=== PATIENT | female | born 1980 | race Caucasian/White ===

== ENCOUNTER → 2019-06-25 | Day surgery (SDC) | payer BC ==
--- OUTSIDE RECORDS SUMMARY | 2019-06-25 09:53 | XMS REPORT ---
:1980 Author Organization [facility] t Address [address] [place] [address] [address]. [address] [place] [address] Care Team Providers Name Role Phone YULIET IGLESIAS M.D. Unavailable Unavailable HOLTER, NON-INVASIVE Unavailable Unavailable GABE HIGGINS M.D. Unavailable Unavailable JUAN CARLOS CHAMORRO M.D. Unavailable Unavailable MEG GANDARA M.D. Unavailable Unavailable ARIN CASTRO M.D. Unavailable Unavailable Problems Condition Condition Condition Status Onset Resolution Last Treatin g Comments Name Details Category Date Date Treatment Clinician Date History of History of Problem Resolve Asthma Asthma d History of History of Problem Resolve Thyroid Thyroid d disease disease History of History of Problem Resolve Vision Vision d problems problems Anxiety Anxiety Problem Active Hypothyroid Hypothyroid Problem Active ism due to ism due to Mariah's Mariah's thyroiditis thyroiditis IBS IBS Problem Active (irritable (irritable bowel bowel syndrome) syndrome) Raised Raised Problem Active antibody antibody titer titer Tachycardia Tachycardia Problem Active Arrhythmia Arrhythmia Problem Active Left foot Left foot Problem Active pain pain Allergies, Adverse Reactions, Alerts Allergy Allergy Status Severity Reaction(s) Onset Inactive Treating C omments Name Type Date Date Clinician Pertussis drug Active Vaccine allergy Singulair drug Active allergy Rhinocort drug Active allergy Medications Ordered Filled Start Stop Current Ordering Indication Dosage Frequency Signature Comments Components Medication Medication Date Date Medication? Clinician (SIG) Name Name Meloxicam Meloxicam 2019-0 Yes YULIET TAKE 1 15 MG Oral 15 MG Oral 2-01 GAUVAIN TABLET Tablet Tablet 00:00: M.D. DAILY 00 NEEDED. Levothyroxi Levothyroxi Yes TAKE 1 ne Sodium ne Sodium TABLET BY 50 MCG Oral 50 MCG Oral MOUTH ON CE Tablet Tablet DAILY. Ventolin 90 Ventolin 90 Yes 3 Q0.25D FOR RES CUE MCG/ACT MCG/ACT WHEN OTHER AERS AERS MEDS NOT WORKING,US E 2-3 PUFFS 3-4 TIMES DAILY MAX EVERY 4 HOURS. Qvar 40 Qvar 40 Yes Q0.5D INHALE 1 MCG/ACT MCG/ACT PUFF TWICE AERS AERS DAILY. Vital Signs Vital Name Observation Time Observation Value Comments BP Systolic 2017-01-05 13:12:00 114 mm[Hg] Location: [facility]; Position: Sitting BP Diastolic 2017-01-05 13:12:00 76 mm[Hg] Location: [facility]; Position: Sitting Height 2017-01-05 13:12:00 66 [in_us] Weight 2017-01-05 13:12:00 139.3125 [lb_av] Heart Rate 2017-01-05 13:12:00 89 /min Location: L Radial; Procedures and Interventions Procedure Date / Time Performed Performing Clinici an [U] XRAY FOOT MIN 3 VWS LEFT [id number] 2018-03-24 00:00:00 MR Foot wo contrast [id number] 2018-03-24 00:00:00 [N] Holter [id number] 2017-04-01 00:00:00 [QH] PROTEIN, TOTAL W/CREAT, RANDOM URINE 2017-01-05 00:00:0 0 [QLH] COMPLEMENT COMPONENT C3C 2017-01-05 00:00:00 [QLH] COMPLEMENT COMPONENT C4C 2017-01-05 00:00:00 [QLH] DNA (DS) ANTIBODY 2017-01-05 00:00:00 [QLH] URINALYSIS, COMPLETE 2017-01-05 00:00:00 [Q] SM AND SM/SYSTEM ENGINEER ANTIBODIES 2017-01-05 00:00:00 [QLH] SJOGRENS ANTIBODIES (SS-A,SS-B) 2017-01-05 00:00:00 History of Tooth extraction Encounters Start End Encounter Admission Attending Care Care Encounter Date/Time Date/Time Type Type Clinicians Facility Department ID 2018-03-24 2018-03-24 Appointment [facility] 4 [id number] 13:15:00 13:15:00 ; YULIET IGLESIAS at [place] [facility], M.D. M.D. 2017-04-01 2017-04-01 Appointment [facility] Non-Invasive 3 [id number] 14:00:00 14:00:00 ; HOLTER, NON-INVASIV NON-INVASIV E E 2017-03-30 2017-03-30 Appointment [facility] [id number] 15:00:00 15:00:00 ; Disha BERNAL ANNE, M.D. 2017-03-10 2017-03-10 Appointment [facility] [id number] 14:45:00 14:45:00 ; Disha BERNAL ANNE, M.D. 2017-01-05 2017-01-05 [facility]ment [facility] [id number] 13:00:00 13:00:00 ; JUAN CARLOS CHAMORRO JAMMIE, M.D. M.D. 2016-12-22 2016-12-22 [facility] [id number] 11:15:00 11:15:00 ; MEG GANDARA LAVANYA, M.D. M.D. 2016-10-04 2016-10-04 [facility] [id number] 09:00:00 09:00:00 ; ARIN CASTRO CARLOS, M.D. M.D. 2016-06-16 2016-06-16 App[facility] [id number] 10:45:00 10:45:00 ; MEG GANDARA LAVANYA, M.D. M.D. 2016-06-16 2016-06-16 App[facility]ment [facility] [id number] 09:40:00 09:40:00 ; MEG GANDARA LAVANYA, M.D. M.D. Results Test Description Test Time Test Comments Text Results Atomic Results Result Comments MR Foot wo contrast 2018-04-05 16:35:00 MRI of the LEF T footINDICATION: Left 94340 foot pain.COMPARISON: No lavinia or studies available for comparison.CRYSTAL HNIQUE: Multiplanar multisequence no ncontrast MRI left foot.FINDINGS:Bones : No evidence of acute fracture. No significant marrow edema.Sof t tissues: Lisfranc ligament is intact. Plantar plates are intact. Nodefinit neena Michael's neuroma.There is a small ank le and subtalar joint effusion. Sma ll talonavicular jointeffusion. There is mild edema around the talona vicular joint capsular ligaments,com patible with mild ligament sprain.Muscles : No muscular edema, fluid collec tion or atrophy.Tendons: No focal te ndon signal abnormality, or evidence for tenosynovitis.IMPRESSION:1. No evidence of acute fracture.2. Mild t alonavicular capsule sprain.3. Scattered small joint effusions.SL: [id number]-M--Read by: Elder Khan MDDictated D ate/time: 04/06/18 08:55Electronically Signed by: Elder Khan MD 04/06/1908:01FINAL REPORT [U] XRAY FOOT MIN 3 2018-03-24 13:55:00 Images acquire d, not reported on this VWS LEFT [id number] accession number. [QLH] URINALYSIS, COMPLETE 2017-03-12 09:48:00 Test Item Value Reference Range Comments COLOR; Normal (test code = 5778-6) YELLOW YELLOW APPEARANCE (test code = APPEARANCE) CLEAR CLEAR SPECIFIC GRAVITY; Below Low Threshold (test code = 2965-2) 1.000 1.001-1.035 PH; Normal (test code = 2756-5) 7.5 5.0-8.0 GLUCOSE; Normal (test code = 1547-9) NEGATIVE NEGATIVE BILIRUBIN; Normal (test code = 92732-3) NEGATIVE NEGATIVE KETONES; Normal (test code = 65388-3) NEGATIVE NEGATIVE OCCULT BLOOD; Normal (test code = 16951-7) NEGATIVE NEGAT NEENA PROTEIN; Normal (test code = 84791-6) NEGATIVE NEGATIVE NITRITE; Normal (test code = 66232-1) NEGATIVE NEGATIVE LEUKOCYTE ESTERASE (test code = LEUKOCYTE ESTERASE) TRACE NEGATIVE WBC; Normal (test code = 6690-2) NONE SEEN < OR = 5 RBC; Normal (test code = 789-8) 0-2 < OR = 2 SQUAMOUS EPITHELIAL CELLS; Normal (test code = 94855-6) NONE SEE N < OR = 5 BACTERIA; Normal (test code = 630-4) NONE SEEN NONE SEEN HYALINE CAST; Normal (test code = 75388-6) NONE SEEN NONE SEEN [QLH] DNA (DS) [id number] 09:48:00 Test Item Value Reference Range Comments DNA (DS) ANTIBODY (test code <1 IU/ mL Interpretation = DNA (DS) ANTIBODY) < or = 4 Negative 5-9 Inde terminate > or = 10 Positive [Q] SM AND SM/SYSTEM ENGINEER [id number] 09:48:00 Test Item Value Reference Range Comments SM ANTIBODY (test code = SM ANTIBODY) <1.0 NEG <1.0 NEG SM/SYSTEM ENGINEER ANTIBODY (test code = SM/SYSTEM ENGINEER ANTIBODY) <1.0 NEG <1 .0 NEG [QLH] SJOGRENS ANTIBODIES (SS-A,SS-B)2017-03-12 09:48:00 Test Item Value Reference Range Comments SJOGREN''S ANTIBODY (SS-A) (test code = SJOGREN''S <1.0 NEG <1.0 NEG ANTIBODY (SS-A)) SJOGREN''S ANTIBODY (SS-B) (test code = SJOGREN''S <1.0 NEG <1.0 NEG ANTIBODY (SS-B)) [QLH] COMPLEMENT COMPONENT [id number] 09:48:00 Test Item Value Reference Range Comments COMPLEMENT COMPONENT C3C (test code = COMPLEMENT 149 mg/dl 90-180 COMPONENT C3C) [QLH] COMPLEMENT COMPONENT [id number] 09:48:00 Test Item Value Reference Range Comments COMPLEMENT COMPONENT C4C (test code = COMPLEMENT 34 mg/dl 16-47 COMPONENT C4C) [QH] PROTEIN, TOTAL W/CREAT, RANDOM [id number] 09:48:00 Test Item Value Reference Range Comments CREATININE, RANDOM URINE 21 mg/dl 20-320 (test code = CREATININE, RANDOM URINE) PROTEIN/CREATININE RATIO NOTE 21-161 THE PRO TEIN VALUE IS LESS THAN 4 (test code = MG/DLTHEREFORE W E ARE UNABLE TO PROTEIN/CREATININE CALCULATEEXCR ETION AND/OR CREATININE RATIO) RATIO. PROTEIN, TOTAL, RANDOM <4 5-24 UR (test code = PROTEIN, TOTAL, RANDOM UR)
--- NOTE | 2019-06-25 12:19 | RAD REPORT ---
EXAM DESCRIPTION: US - Guided FNA Non Breast - 06/25/2019 9:24 am CLINICAL HISTORY: Thyroid nodule ICD E03.9 COMPARISON: April 2019 ultrasound TECHNIQUE: Risks, benefits and alternatives of procedure explained to the patient and informed conse nt obtained. Skin and subcutaneous tissues anesthetized with lidocaine. Under sonographic guidance, five 25 gauge needle passes were obtained into the dominant nodule within the right lobe of the thyroid gland. Specimens given to pathology. Patient experienced no immediate complication IMPRESSION: Fine-needle aspiration of a dominant nodule within left lobe of thyroid gland
== END | disposition home or self-care (01) ==
LOC: FNA 08:39
PROVIDERS: ATTEND Specialist
PROC: 0G9G3ZX Drainage of Left Thyroid Gland Lobe, Percutaneous Approach, Diagnostic (ICD-10-PCS; principal; 2019-06-25)
PROC: BG44ZZZ Ultrasonography of Thyroid Gland (ICD-10-PCS; 2019-06-25)
DX: C73 Malignant neoplasm of thyroid gland (principal); E03.9 Hypothyroidism, unspecified
CPT/HCPCS: 88162

== ENCOUNTER 2021-03-13 00:50 | Emergency (ER) | payer BC, SELFPAY ==
--- OUTSIDE RECORDS SUMMARY | 2021-03-13 00:56 | XMS REPORT | Clinical Summary ---
:1980 Author Organization [facility] MD [facility] Address [address] [place] [address] Care Team Providers Name Role Phone Anali Bowers MD Primary Care Provider Reena Simon MD Unavailable Jessica Mi MD Unavailable Johanny, PhD Unavailable Allergies Active Allergy Reactions Severity Noted Date Comments Budesonide 08/09/2016 Montelukast 08/09/2016 Onion 01/06/2021 Pertussis Vaccines Anaphylaxis High 08/04/2016 Medications Medication Sig Dispensed Refills Start End Date Status Date lidocaine-prilocaine Apply to area 30 g 2 Active (EMLA) 2.5-2.5% 30 to 45 0 creamIndications: minutes prior Hypersensitivity to as directed finding (topical anesthetic). beclomethasone Inhale 1 puff 0 A ctive (QVAR) 80 mcg/puff by mouth inhaler daily. diazePAM (Valium) 2 Take 1 tablet 1 tablet 0 Active mg (2 mg) by 1 tabletIndications: mouth once as Papillary thyroid needed for carcinoma anxiety for up to 1 dose. econazole Apply to feet 85 g 3 Active (SPECTAZOLE) 1% twice a day 1 creamIndications: until scaling Tinea pedis resolves, then for 1 additional week. ketoconazole Apply to scalp 120 mL 6 Ac tive (NIZORAL) 2% 2-3 times per 1 shampooIndications: week for Seborrhea capitis scaling. Leave for 10 minutes in the shower then rinse. Calcium 600 with Chew 2 tablets 0 Active Vitamin D3 1,500 mg at bedtime. - 400 units (600 mg elemental calcium per tablet) per chew tablet Synthroid 100 mcg Take 1 tablet 90 tablet 4 02/11/20 Active tabletIndications: (100 mcg) by 1 22 Papillary thyroid mouth daily. carcinoma, Postoperative hypothyroidism diltiazem (CARDIZEM) Take 120 mg by 0 12/22 Discontinued 120 mg tablet mouth daily. 0 21 (No t Applicable) calcium carbonate Take 1 tablet 0 01/07/20 Discontinued (OS-YUAN) 500 mg (500 mg) by 0 21 (N ot Applicable) (1,250 mg calcium mouth twice carbonate per daily. tablet) tabletIndications: Papillary thyroid carcinoma, Postoperative hypothyroidism, Long-term drug therapy, Encounter for screening for other suspected endocrine disorder, Hypocalcemia diazePAM (Valium) 2 Take 1 tablet 1 tablet 0 Discontinued mg (2 mg) by 0 21 (Reorder) tabletIndications: mouth once as Papillary thyroid needed for carcinoma anxiety for up to 1 dose. Synthroid 125 mcg Take 1 tablet 90 tablet 3 03/14/19 Discontinued tabletIndications: (125 mcg) by 0 21 (Dose Postoperative mouth daily. adj ustment) hypothyroidism levothyroxine Take by mouth. 0 03/14/19 D iscontinued (SYNTHROID, Half pill 21 (Dose LEVOTHROID) 137 mcg twice a week, adjustment) tablet other days taking full cholecalciferol, Take 50,000 0 01/07/20 D iscontinued vitamin D3, (VITAMIN Units by 21 (Not Applicable) D3) 50,000 units tab mouth. Every tablet 2 weeks Synthroid 112 mcg Take 1 tablet 30 tablet 13 11/06/19 Discontinued tabletIndications: (112 mcg) by 1 21 (Reorder) Papillary thyroid mouth daily. carcinoma, Postoperative hypothyroidism diazePAM (Valium) 2 Take 1 tablet 1 tablet 0 Discontinued mg (2 mg) by 1 21 (Reorder) tabletIndications: mouth once as Papillary thyroid needed for carcinoma anxiety for up to 1 dose. Synthroid 112 mcg Take 1 tablet 90 tablet 4 01/07/20 Discontinued tabletIndications: (112 mcg) by 1 21 (Dose Papillary thyroid mouth daily. adjustment) carcinoma, Postoperative hypothyroidism Active Problems Patient Care Coordination Note Formatting of this note might be differe nt from the original. Hypersensitivity and extreme phobia of n eedles, please use IV team for starting IVs. 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 08/16/2019 Postoperative hypothyroidism 08/14/2019 Exercise-induced asthma 08/10/2019 Postural orthostatic tachycardia syndrome 08/10/2019 High antibody titer 07/18/2019 Overview: +TgAb Fear of injections and transfusions 07/18/2019 Mixed anxiety and depressive disorder 07/18/2019 Papillary thyroid carcinoma 07/13/2019 Cancer Staging: Pathologic stage from : Stage I (pT1a, pN1a, cM0, Age at diagnosis: < 55 years) - Signed by Jeff Beltran MD on 09/24/2019 Encounters Date Type Specialty Care Team Description 01/06/2021 Office Visit Endocrinology Devin, Papillary thyr oid carcinoma (Primary Dx); MD Jeff Secondary malig nant neoplasm of lymph nodes of neck from thyroid; High antibody t iter; Postoperative h ypothyroidism; Long-term drug therapy 01/06/2021 Consult Dermatology Fariba Jacob pedis (Pr imary Dx); MD Geraldine Skin lesion; Seborrhea capit is 01/06/2021 Ancillary Procedure Radiology Devin, Papillar y thyroid MD Jeff carcinoma 01/06/2021 Travel 01/01/2021 Telephone Pediatric Severino Barton Endocrinology R, RN 12/25/2020 Documentation Endocrinology Vanna Cole RN 12/17/2020 Refill Pediatric Divincenzo, Papillary thyro id Endocrinology Magdalene Sesay RN carcinoma 11/24/2020 Orders Only Pediatric Litzy, Papillary thyr oid carcinoma (Primary Dx); Endocrinology AYLIN Hooks Postoperative hypothyroidism; Skin lesion 11/05/2020 Refill Pediatric Divincenzo, Papillary thyro id carcinoma; Endocrinology Magdalene Sesay RN Postoperative hypothyroidism 05/30/2020 Telephone Pediatric [place], Endocrinology Magdalene Sesay RN 05/19/2020 Refill Pediatric Divincenzo, Papillary thyro id Endocrinology Magdalene Sesay RN carcinoma 05/19/2020 Refill Endocrinology Trevin, Papillary thyr oid Alinaalthea Kerrn O, carcinoma RN 04/19/2020 Immunization Infectious Diseases Bill Bowers SARS-CoV -2 MD Anali vaccination (Pr imary Dx) 04/19/2020 Travel 03/29/2020 Immunization Infectious Diseases Ricky SARS-CoV -2 MD Janelle vaccination (Pr imary Dx) 03/29/2020 Travel 03/27/2020 Office Visit Pediatric Devin, Papillary thyro id carcinoma (Primary Dx); Endocrinology MD Jeff Secondary anne gnant neoplasm of lymph nodes of neck from thyroid; High antibody t iter; Postoperative h ypothyroidism; Long-term drug therapy 03/27/2020 Ancillary Procedure Radiology Devin, Papillar y thyroid MD Jeff carcinoma 03/27/2020 Travel 03/21/2020 Orders Only Infectious Diseases Ricky SARS-CoV -Serge Luis MD vaccination 03/14/2020 Orders Only Pediatric Litzy, Papillary thyr oid carcinoma (Primary Dx); Endocrinology AYLIN Hooks Postoperative hypothyroidism 03/14/2020 Documentation Pediatric Litzy, Endocrinology AYLIN Hooks after 03/13/2020 Immunizations Name Administration Dates Next Due Pfizer SARS-CoV-2 Vaccination 10/04/2020, 04/19/2020, 2020 Pneumococcal Polysaccharide 12/19/2018 Surgical History Surgery Date Site/Laterality Comments WISDOM TOOTH EXTRACTION ID [id number] 08/13/2019 Neck/Bilateral Procedure: TOTA L OR COMPLETE THYROID ECTOMY; Surgeon: Bill Bowers MD; Location: [facility]; Service: [facility] - HE AD & NECK SURGERY ID REMOVAL NODES, NECK,CERV MOD 08/13/2019 Neck/Right Procedure: LEVEL NECK RAD DISSECTION; Fabio geon: Lázaro Nieves; Location: MAIN O R; Service: HN - HE AD & NECK SURGERY Medical History Medical History Date Comments Allergic rhinitis Sinusitis Tooth disorder Sensitivity to commo n toothpaste led to a lot of cavities . Asthma Lifetime Exercise and cold ai r induced. Must be kept warm. Irritable bowel syndrome 11+ Dairy, gluten, fatty foods, sugars Anemia 19 Heavy monthly bleede r. Controlled via iron supplement.. Anxiety Mariah's thyroiditis 2015 Papillary thyroid carcinoma 06/2019 Postural orthostatic tachycardia 2015 syndrome Abnormal vision right eye trauma as a child Secondary malignant neoplasm of lymph 08/16/2019 nodes of neck from thyroid Family History Medical History Relation Name Comments Coronary artery disease Father Bernard Prostate cancer Father Bernard Skin cancer Mother Shikha Diabetes Paternal Aunt Coronary artery disease Paternal Grandfather Skin cancer Paternal Grandmother Ata Brain cancer Paternal Uncle Reggie . Stroke Neg Hx Relation Name Status Comments Father Bernard Mother Shikha Paternal Aunt Paternal Grandfather Paternal Grandmother Ata Paternal Uncle Reggie Social History Tobacco Use Types Packs/Day Years Used Date Never Smoker 0 0 Smokeless Tobacco: Never Used Alcohol Use Standard Drinks/Week Comments Never 0 (1 standard drink = 0.6 oz pure alcoho l) Sex Assigned at Date Recorded Female 07/06/2019 11:33 AM CDT Job Start Date Occupation Industry Not on file Not on file Not on file Obstetrics History Last Filed Vital Signs Vital Sign Reading Time Taken Comments Blood Pressure 100/65 01/06/2021 2:39 PM FOOD TECHNOLOGIST Pulse 100 01/06/2021 2:39 PM FOOD TECHNOLOGIST Temperature 36.9 C (98.4 F) 01/06/2021 2:39 PM FOOD TECHNOLOGIST Respiratory Rate 16 03/27/2020 12:52 PM FOOD TECHNOLOGIST Oxygen Saturation 97% 01/06/2021 2:39 PM FOOD TECHNOLOGIST Inhaled Oxygen Concentration - - Weight 57.7 kg (127 lb 3.3 oz) 01/06/2021 3:18 PM FOOD TECHNOLOGIST Height 166.1 cm (5' 5.39") 03/27/2020 12:52 PM FOOD TECHNOLOGIST Body Mass Index 20.91 03/27/2020 12:52 PM FOOD TECHNOLOGIST Plan of Treatment Health Maintenance Due Date Last Done Comments COVID-19 Vaccination (4 - Booster 03/06/2021 10/04/2020, , for Pfizer series) 03/29/2020 Procedures Procedure Name Priority Date/Time Associated Diagnosis Comme nts US HEAD NECK SOFT Routine 01/06/2021 2:03 PM Papillary thyroi d Results for this TISSUE FOOD TECHNOLOGIST carcinoma procedure are i n the results section. HEAD NECK SOFT Routine 03/27/2020 10:17 AM Papillary thyroi d Results for this TISSUE FOOD TECHNOLOGIST carcinoma procedure are i n the results section. after 03/13/2020 Results US Head Neck Soft Tissue (01/06/2021 2:03 PM FOOD TECHNOLOGIST)Only the most recent of2 resultswithin the time period is included. Specimen Impressions [id number] - 01/06/2021 2:24 PM FOOD TECHNOLOGIST 1. No local recurrence. 2. No adenopathy. Narrative [id number] - 01/06/2021 2:24 PM FOOD TECHNOLOGIST Examination: US HEAD NECK SOFT TISSUE, 01/06/2021 2:03 PM Clinical History: PTC Indication: PTC Comparison: Neck ultrasound from Technique: Sonographic images were [place] of the neck soft tissues. Findings: Thyroidectomy and Central neck: The tota l thyroidectomy bed has no local recurrence. Right lateral compartment: No adenopathy . Left lateral compartment: No adenopathy Procedure Note Kaylan Patel MD - 01/06/2021 Examination: US HEAD NECK SOFT TISSUE, 1 03/08/2020 2:03 PM Clinical History: PTC Indication: PTC Comparison: Neck ultrasound from Technique: Sonographic images were [place] of the neck soft tissues. Findings: Thyroidectomy and Central neck: The tota l thyroidectomy bed has no local recurrence. Right lateral compartment: No adenopathy . Left lateral compartment: No adenopathy IMPRESSION: 1. No local recurrence. 2. No adenopathy. Performing Organization Address City/State/ZIP Code Phon e Number [id number] after 03/13/2020 Insurance Payer Benefit Plan / Subscriber ID Effective Dates Phone Addre ss Type Group [employer] PPO POS [id number] 2017-Present [address] [facility] PPO [facility]UE [facility] [facility] [address] [place] [address] Advance Directives Code Status Date Activated Date Inactivated Comments Full Code 08/13/2019 2:54 PM 08/14/2019 8:30 AM Care Teams [employer] Relationship Specialty Start Date End Date Bill Bowers, PCP - General Head and Neck Surgery 07/12/[address] [place] [address] [phone] Ailyn Simon MD PCP - External Follow 07/12/19 [address] [facility] [address] [place], [place] [id number] Paddy Mi MD PCP - External Primary Internal Medicine 07/17/19 [address] [facility] Provider [address] [place], [place] [id number] Vibha Orlando, PhD Psychologist Psychology 09/19/[address] [place] [address] [phone]
--- OUTSIDE RECORDS SUMMARY | 2021-03-13 00:57 | XMS REPORT | Continuity of Care Document ---
:1980 Author Organization [facility] t Address [address] [place] [address] Care Team Providers Name Role Phone [phone] Primary Care Physician Unavailable RONALDO Attending Clinician Unavailable SYSTEM, NOT IN Attending Clinician Unavailable Kobi GARRETT Attending Clinician Unavailable DEVIN Attending Clinician Unavailable PADMINI Attending Clinician Unavailable GABE COYLE Attending Clinician Unavailable Devin ANAYA Attending Clinician Tyron ANAYA Attending Clinician TYRON Attending Clinician Unavailable Oralia RN, R Attending Clinician Unavailable Kelsey AN, L Attending Clinician Unavailable Guanako AN, M Attending Clinician Unavailable Litzy VIERA Attending Clinician Ophelia Zhong RN Attending Clinician Anali Bowers MD Attending Clinician ANALI BOWERS Attending Clinician Unavailable Cristina ANAYA Attending Clinician CRISTINA Attending Clinician Unavailable ABDIRASHID Attending Clinician Unavailable IRINEO Attending Clinician Unavailable KELSIE Attending Clinician Unavailable DEMETRIUS Attending Clinician Unavailable RONALDO Attending Clinician Unavailable PEDRO PABLO Attending Clinician Unavailable NICHOL Attending Clinician Unavailable MATTHEW Attending Clinician Unavailable ANALI BOWERSitting Clinician Unavailable Payers Payer Name Policy Type Policy Number Effective Date Expiration Date S [facility] BCBS OUT OF STATE [id number] 2017 00:00:00 BCBS PPO POS OUT [id number] 2017 00:00:00 OF STATE GENERIC BCBS PPO POS EPO [id number] 2017 00:00:00 CHOICE Problems Condition Condition Condition Status Onset Resolution Last Treating Co mments Source Name Details Category Date Date Treatment Clinician Date 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 00:00: n 00 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 +TgAb Fear of Fear of Disease Active MD injections injections 5-27 An derso and and 00:00: n transfusio transfusio 00 ns ns Mixed Mixed Disease Active MD anxiety anxiety 5- Anderso and and 00:00: n depressive depressive 00 disorder disorder Papillary Papillary Disease Active MD thyroid thyroid 5 Anderso carcinoma carcinoma 00:00: n 00 History of History of Problem Resolve [facility] Asthma Asthma d [facility] [place] [facility] History of History of Problem Resolve [facility] Thyroid Thyroid d ity of disease disease [place] [facility] History of History of Problem Resolve [facility] Vision Vision d ity of problems problems [place] [facility] Anxiety Anxiety Problem Active [facility] [place] [facility] Hypothyroi Hypothyroi Problem Active U nivers dism due dism due ity of to to [place] [facility] ans thyroiditi thyroiditi s s Tachycardi Tachycardi Problem Active U nivers a a [facility] [place] [facility] Arrhythmia Arrhythmia Problem Active U nivers [facility] [place] [facility] Left foot Left foot Problem Active Uni vers pain pain [facility] [place] [facility] Allergies, Adverse Reactions, Alerts Allergy Allergy Status Severity Reaction(s) Onset Inactive Treating Comm ents Source Name Type Date Date Clinician BUDESONI [facility] Wayne MONTELUK Allergy Active [facility] Wayne BUDESONI DRUG Active MD DE INGREDI 6-19 Anderso 00:00: n 00 [place] DRUG Active 0 MD AST INGREDI 6-19 Anderso 00:00: n 00 BUDESONI DRUG Active 0 MD DE INGREDI 6-19 Anderso 00:00: n 00 [place] DRUG Active 0 MD AST INGREDI 6-19 Anderso 00:00: n 00 BUDESONI DRUG Active 0 MD DE INGREDI 6-19 Anderso 00:00: n 00 [place] DRUG Active 0 MD AST INGREDI 6-19 Anderso 00:00: n 00 BUDESONI DRUG Active 0 MD DE INGREDI 6-19 Anderso 00:00: n 00 [place] DRUG Active 0 MD AST INGREDI 6-19 Anderso 00:00: n 00 BUDESONI DRUG Active 0 MD DE INGREDI 6-19 Anderso 00:00: n 00 [place] DRUG Active 0 MD AST INGREDI 6-19 Anderso 00:00: n 00 BUDESONI DRUG Active 0 MD DE INGREDI 6-19 Anderso 00:00: n 00 [place]EL[place] DRUG Active 20170 MD AST INGREDI 6-19 Anderso 00:00: n 00 BUDESONI DRUG Active 0 MD DE INGREDI 6-19 Anderso 00:00: n 00 [place] DRUG Active 2017-0 MD AST INGREDI 6-19 Anderso 00:00: n 00 BUDESONI DRUG Active 0 MD DE INGREDI 6-19 Anderso 00:00: n 00 [place] DRUG Active 2017-0 MD AST INGREDI 6-19 Anderso 00:00: n 00 BUDESONI DRUG Active 0 MD DE INGREDI 6-19 Anderso 00:00: n 00 [place] DRUG Active 2017-0 MD AST INGREDI 6-19 Anderso 00:00: n 00 BUDESONI DRUG Active 2017-0 MD DE INGREDI 6-19 Anderso 00:00: n 00 [place] DRUG Active 2017-0 MD AST INGREDI 6-19 Anderso 00:00: n 00 BUDESONI DRUG Active 2017-0 MD DE INGREDI 6-19 Anderso 00:00: n 00 [place] DRUG Active 2017-0 MD AST INGREDI 6-19 Anderso 00:00: n 00 BUDESONI DRUG Active 2017-0 MD DE INGREDI 6-19 Anderso 00:00: n 00 [place] DRUG Active 2017-0 MD AST INGREDI 6-19 Anderso 00:00: n 00 BUDESONI DRUG Active 2017-0 MD DE INGREDI 6-19 Anderso 00:00: n 00 [place] DRUG Active 2017-0 MD AST INGREDI 6-19 Anderso 00:00: n 00 BUDESONI DRUG Active 2017-0 MD DE INGREDI 6-19 Anderso 00:00: n 00 [place] DRUG Active 2017-0 MD AST INGREDI 6-19 Anderso 00:00: n 00 BUDESONI DRUG Active 2017-0 MD DE INGREDI 6-19 Anderso 00:00: n 00 [place] DRUG Active 2017-0 MD AST INGREDI 6-19 Anderso 00:00: n 00 BUDESONI DRUG Active 2017-0 MD DE INGREDI 6-19 Anderso 00:00: n 00 [place] DRUG Active 2017-0 MD AST INGREDI 6-19 Anderso 00:00: n 00 BUDESONI DRUG Active 2017-0 MD DE INGREDI 6-19 Anderso 00:00: n 00 [place] DRUG Active 2017-0 MD AST INGREDI 6-19 Anderso 00:00: n 00 BUDESONI DRUG Active 2017-0 MD DE INGREDI 6-19 Anderso 00:00: n 00 [place] DRUG Active 2017-0 MD AST INGREDI 6-19 Anderso 00:00: n 00 BUDESONI DRUG Active 2017-0 MD DE INGREDI 6-19 Anderso 00:00: n 00 [place] DRUG Active 2017-0 MD AST INGREDI 6-19 Anderso 00:00: n 00 BUDESONI DRUG Active 2017-0 MD DE INGREDI 6-19 Anderso 00:00: n 00 [place] DRUG Active 2017-0 MD AST INGREDI 6-19 Anderso 00:00: n 00 BUDESONI DRUG Active 2017-0 MD DE INGREDI 6-19 Anderso 00:00: n 00 [place] DRUG Active 2017-0 MD AST INGREDI 6-19 Anderso 00:00: n 00 BUDESONI DRUG Active 2017-0 MD DE INGREDI 6-19 Anderso 00:00: n 00 [place] DRUG Active 2017-0 MD AST INGREDI 6-19 Anderso 00:00: n 00 PERTUSSI Allergy Active High Anaphylaxis 2017-[address] [facility] PERTUSSI Drug Active High Anaphylaxis 2017-0 MD S Class 6-14 Anderso VACCINES 00:00: n 00 PERTUSSI Drug Active High Anaphylaxis 2017-0 MD S Class 6-14 Anderso VACCINES 00:00: n 00 PERTUSSI Drug Active High Anaphylaxis 2017-0 MD S Class 6-14 Anderso VACCINES 00:00: n 00 PERTUSSI Drug Active High Anaphylaxis 2017-0 MD S Class 6-14 Anderso VACCINES 00:00: n 00 PERTUSSI Drug Active High Anaphylaxis 2017-0 MD S Class 6-14 Anderso VACCINES 00:00: n 00 PERTUSSI Drug Active High Anaphylaxis 2017-0 MD S Class 6-14 Anderso VACCINES 00:00: n 00 PERTUSSI Drug Active High Anaphylaxis 2017-0 MD S Class 6-14 Anderso VACCINES 00:00: n 00 PERTUSSI Drug Active High Anaphylaxis 2017-0 MD S Class 6-14 Anderso VACCINES 00:00: n 00 PERTUSSI Drug Active High Anaphylaxis 2017-0 MD S Class 6-14 Anderso VACCINES 00:00: n 00 PERTUSSI Drug Active High Anaphylaxis 2017-0 MD S Class 6-14 Anderso VACCINES 00:00: n 00 PERTUSSI Drug Active High Anaphylaxis 2017-0 MD S Class 6-14 Anderso VACCINES 00:00: n 00 PERTUSSI Drug Active High Anaphylaxis 2017-0 MD S Class 6-14 Anderso VACCINES 00:00: n 00 PERTUSSI Drug Active High Anaphylaxis 2017-0 MD S Class 6-14 Anderso VACCINES 00:00: n 00 PERTUSSI Drug Active High Anaphylaxis 2017-0 MD S Class 6-14 Anderso VACCINES 00:00: n 00 PERTUSSI Drug Active High Anaphylaxis 2017-0 MD S Class 6-14 Anderso VACCINES 00:00: n 00 PERTUSSI Drug Active High Anaphylaxis 2017-0 MD S Class 6-14 Anderso VACCINES 00:00: n 00 PERTUSSI Drug Active High Anaphylaxis 2017-0 MD S Class 6-14 Anderso VACCINES 00:00: n 00 PERTUSSI Drug Active High Anaphylaxis 2017-0 MD S Class 6-14 Anderso VACCINES 00:00: n 00 PERTUSSI Drug Active High Anaphylaxis 2017-0 MD S Class 6-14 Anderso VACCINES 00:00: n 00 PERTUSSI Drug Active High Anaphylaxis 2017-0 MD S Class 6-14 Anderso VACCINES 00:00: n 00 PERTUSSI Drug Active High Anaphylaxis 2017-0 MD S Class 6-14 Anderso VACCINES 00:00: n 00 PERTUSSI Drug Active High Anaphylaxis 2017-0 MD S Class 6-14 Anderso VACCINES 00:00: n 00 Pertussi drug Active Univers s allergy ity of Vaccine [place] [facility] Singulai drug Active Univers r allergy [facility] [place] [facility] Rhinocor drug Active Univers t allergy [facility] [place] [facility] Family History Family Member Diagnosis Comments Start Date Stop Date Source Natural father Coronary artery MD Rosa love disease Natural father Prostate cancer MD Rosa love Natural mother Skin cancer MD Acunaers on Paternal aunt Diabetes MD Muir Paternal grandfather Coronary artery MD Muir disease Paternal grandmother Skin cancer MD Muir Paternal uncle Brain cancer MD Rachel son Family member Stroke MD Muir Grandmother Family history of Univer sity of malignant [place] [facility]icia [facility] neoplasm aunt Family history of Univers ity of thyroid disease [place] [facility] aunt Family history of Univers ity of diabetes mellitus [place] P [facility]ysicians cousin Family history of Univers ity of thyroid disease [place] [facility] Social History Social Habit Start Date Stop Date Quantity Comments Source Alcohol intake 2021-01-06 2021-01-06 Lifetime MD Samantha sanchez 00:00:00 00:00:00 non-drinker (finding) Tobacco use and 2019-07-18 2019-07-18 Smokeless tobacco MD Muir exposure 00:00:00 00:00:00 non-user Sex Ass[birth year] At [birth year] F MD [place] 00:00:00 00:00:00 Smoking Status Start Date Stop Date Source Never smoked tobacco MD Muir Medications Ordered Filled Start Stop Current Ordering Indication Dosage Frequency Signature Comments Components Source Medication Medication Date Date Medication? Clinician (SIG) Name Name cholecalcif 2020-02- No 62056B Take MD wheeler, -16 11-16 50,000 Anderso vitamin D3, 16:00: 00:00 Units by n (VITAMIN 12 :00 mouth. D3) 50,000 Every 2 units tab weeks tablet Calcium 600 2020-02 Yes 2{tbl} Chew 2 MD with 1-16 tablets at Anderso Vitamin D3 15:55: bedtime. n 1,500 mg - 50 400 units (600 mg elemental calcium per tablet) per chew tablet beclomethas 2020-02 Yes 1{puff} Inhale 1 MD one (QVAR) 1-16 puff by Chaparro o 80 mcg/puff 15:55: mouth n inhaler 33 daily. econazole 2020-02 Yes Tinea pedis Apply to MD (SPECTAZOLE 1-16 feet twice An derso ) 1% cream 00:00: a day n 00 until scaling resolves, then for 1 additional week. ketoconazol 2020-02 Yes Seborrhea Apply to e (NIZORAL) 1-16 capitis scalp 2-3 Anderso 2% shampoo 00:00: times per n 00 week for scaling. Leave for 10 minutes in the shower then rinse. Synthroid 2020-02- Yes Postoperati 100ug Take 1 MD 100 mcg 1-16 12-22 ve tablet Anderso tablet 00:00: 05:59 hypothyroid (100 mcg) n 00 :00 ism by mouth daily. diazePAM 2020-02 Yes Papillary 2mg Take 1 MD (Valium) 2 0-27 thyroid tablet (2 A nderso mg tablet 00:00: carcinoma mg) by n 00 mouth once as needed for anxiety for up to 1 dose. Synthroid 2020- No Postoperati 112ug Take 1 MD 112 mcg 9-15 11-16 ve tablet Anderso tablet 00:00: 00:00 hypothyroid (112 mcg) n 00 :00 ism by mouth daily. diazePAM Papillary 2mg Take 1 M D (Valium) 2 3-29 10- thyroid tablet (2 Anderso mg tablet 00:00: 00:00 carcinoma mg) by n 00 :00 mouth once as needed for anxiety for up to 1 dose. levothyroxi No Take by MD mar 03-14 mouth. Anderso (SYNTHROID, 09:50: 00:00 Half pill n LEVOTHROID) 46 :00 twice a 137 mcg week, tablet other days taking full Synthroid Postoperati 112ug Take 1 MD 112 mcg 03-14-15 ve tablet Anderso tablet 00:00: 00:00 hypothyroid (112 mcg) n 00 :00 ism by mouth daily. Synthroid Postoperati 125ug Take 1 MD 125 mcg 09-23 ve tablet Anderso tablet 00:00: 00:00 hypothyroid (125 mcg) n 00 :00 ism by mouth daily. diazePAM Papillary 2mg Take 1 M D (Valium) 2 7- 03-29 thyroid tablet (2 Anderso mg tablet 00:00: 00:00 carcinoma mg) by n 00 :00 mouth once as needed for anxiety for up to 1 dose. calcium No Hypocalcemi 500mg Take 1 MD carbonate 08-13 11-16 a tablet Anderso (OS-YUAN) 00:00: 00:00 (500 mg) n 500 mg 00 :00 by mouth (1,250 mg twice calcium daily. carbonate per tablet) tablet lidocaine-p Yes Hypersensit Apply to rilocaine 527 ivity area 30 to And erso (EMLA) 00:00: finding 45 minutes n 2.5-2.5% 00 prior to cream as directed (topical anesthetic ). diltiazem 2020- No 120mg Take 120 MD (CARDIZEM) 5- 11-16 mg by Anderso 120 mg 00:00: 00:00 mouth n tablet 00 :00 daily. Meloxicam Meloxicam Yes YULIET TAKE 1 Univers 15 MG Oral 15 MG Oral 2-01 GAUVAIN TABLET ity of Tablet Tablet 00:00: M.D. DAILY [place] 00 NEEDED. Physici ans Levothyroxi Levothyroxi Yes TAKE 1 Univers ne Sodium ne Sodium TABLET BY ity of 50 MCG Oral 50 MCG Oral MOUTH ONCE [place] Tablet Tablet DAILY. Physici ans Ventolin 90 Ventolin 90 Yes 3 Q0.25D FOR RESCUE Univers MCG/ACT MCG/ACT WHEN OTHER ity of AERS AERS MEDS NOT [place] WORKING, Physici E 2-3 ans PUFFS 3-4 TIMES DAILY MAX EVERY 4 HOURS. Qvar 40 Qvar 40 Yes Q0.5D INHALE 1 Univ ers MCG/ACT MCG/ACT PUFF TWICE ity of AERS AERS DAILY. [place] [facility] Immunizations Ordered Immunization Filled Immunization Date Status Commen ts Source Name Name Pfizer SARS-CoV-2 2020-10-04 Completed MD Zuniga rson Vaccination 00:00:00 Pfizer SARS-CoV-2 2020-04-19 Completed MD Zuniga rson Vaccination 00:00:00 Pfizer SARS-CoV-2 2020-03-29 Completed MD Zuniga rson Vaccination 00:00:00 Pneumococcal 2018-12-19 Completed MD Muir Polysaccharide 00:00:00 Vital Signs Vital Name Observation Time Observation Value Comments Source WEIGHT 2020-09-09 58.605 kg 14:14:00 HEIGHT 2020-07-07 167.6 cm 14:13:00 WEIGHT 2020-07-07 58.151 kg 14:13:00 HEIGHT 2020-03-27 166.1 cm 12:52:00 WEIGHT 2020-03-27 57.35 kg 12:52:00 HEIGHT 2020-03-27 166.1 cm 12:52:00 WEIGHT 2020-03-27 57.35 kg 12:52:00 HEIGHT 2019-09-24 166.1 cm 12:28:00 WEIGHT 2019-09-24 59.55 kg 12:28:00 WEIGHT 2019-08-10 60.9 kg 00:00:00 Body weight 2021-01-06 57.7 kg MD Muir 21:18:00 BMI 2021-01-06 20.91 kg/m2 MD Muir 21:18:00 Body temperature 2021-01-06 36.89 Lolly MD Muir 20:39:55 Oxygen saturation 2021-01-06 97 /min MD Samantha sanchez in Arterial blood 20:39:55 by Pulse oximetry Systolic blood 2021-01-06 100 mm[Hg] MD Muir pressure 20:39:55 Diastolic blood 2021-01-06 65 mm[Hg] MD Muir pressure 20:39:55 Heart rate 2021-01-06 100 /min MD Muir 20:39:55 Respiratory rate 2020-03-27 16 /min MD Muir 18:52:00 Body height 2020-03-27 166.1 cm MD Muir 18:52:00 BP Systolic 2017-01-05 114 mm[Hg] Location: [facility] 13:12:00 Position: [place] [facility] Sitting BP Diastolic 2017-01-05 76 mm[Hg] Location: [facility] 13:12:00 Position: [place] [facility] Sitting Height 2017-01-05 66 [in_us] [facility] 13:12:00 [place] [facility] s Weight 2017-01-05 139.3125 [lb_av] [facility] 13:12:00 [place] [facility] Body Mass Index 2017-01-05 22.49 kg/m2 University o f Calculated 13:12:00 [place] [facility] Heart Rate 2017-01-05 89 /min Location: [facility] 13:12:00 Radial; [place] [facility]ician s Procedures Procedure Date / Time Performed Performing Clinician Sour e US HEAD NECK SOFT 2021-01-06 20:03:00 Jeff Beltran MD Efrain rson TISSUE US HEAD NECK SOFT 2020-03-27 16:17:31 Jeff Beltran MD Efrain rson TISSUE [U] XRAY FOOT MIN 3 2018-03-24 00:00:00 [facility] VWS LEFT [id number] Physicians MR Foot wo contrast 2018-03-24 00:00:00 [facility] [id number] Physicians [N] Holter 2017-04-01 00:00:00 Kenvil o f [place] [id number] Physicians [QH] PROTEIN, TOTAL 2017-01-05 00:00:00 [facility] W/CREAT, RANDOM URINE Physicians [QLH] COMPLEMENT 2017-01-05 00:00:00 [facility] COMPONENT C3C Physicians [QLH] COMPLEMENT 2017-01-05 00:00:00 [facility] COMPONENT C4C Physicians [QLH] DNA (DS) 2017-01-05 00:00:00 [facility] ANTIBODY Physicians [[facility]] URINALYSIS, 2017-01-05 00:00:00 [facility] COMPLETE Physicians [Q] SM AND SM/SAP BUSINESS OBJECTS DEVELOPER 2017-01-05 00:00:00 [facility] ANTIBODIES Physicians [[facility]] SJOGRENS 2017-01-05 00:00:00 [facility] ANTIBODIES (SS-A,SS-B) Physician s History of Tooth [employer] [facility] [place] extraction Physicians Plan of Care Planned Activity Planned Date Details Comments Source Future Scheduled Test 2021-03-06 00:00:00 COVID-19 Vaccination (4 MD Wood - Booster for Pfizer series) [code = COVID-19 Vaccination (4 - Booster for Pfizer series)] Encounters Start End Encounter Admission Attending Care Care Encounter Source Date/Time Date/Time Type Type Clinicians Facility Department ID 2021-01-28 Outpatient [facility] [id number] [place] 14:37:04 [facility] 2021-01-28 Outpatient [facility] [id number] [place] 13:24:32 [facility] 2021-01-26 Outpatient [facility] [id number] [place] 14:14:38 [facility] 2021-01-05 Outpatient SYSTEM, [facility] MDA [id number] 12:44:42 PROVIDER Chaparro o n 2020-06-09 Outpatient SYSTEM, [facility] MDA [id number] 10:50:28 PROVIDER Chaparro o n 2020-05-04 Outpatient SYSTEM, MDA MDA [id number] 14:54:15 PROVIDER Chaparro o n 2019-10-05 Outpatient [facility] MDA MDA [id number] 14:17:40 KORY sanchez 2019-10-05 Outpatient MDA MDA [id number] 11:34:59 Samantha sanchez 2019-08-27 Outpatient SYSTEM, MDA MDA [id number] 08:39:13 PROVIDER Chaparro o n 2019-08-27 Outpatient DEVIN MDA MDA [id number] 07:26:28 JEFF sanchez 2019-08-24 Outpatient DEVIN MDA MDA [id number] 10:23:51 JEFF sanchez 2019-08-22 Outpatient DEVIN MDA MDA [id number] 08:25:19 JEFF sanchez 2019-08-17 Outpatient DEVIN, MDA MDA [id number] 00:46:11 JEFF sanchez 2019-08-16 Outpatient FELICITY [place] MDA MDA [id number] MD 04:15:53 Samantha sanchez 2021-09-10 2021-09-10 [id number] 00:[facility]00 00:00:00 [facility] 2021-01-06 2021-01-06 Outpatient FANTASMA BELTRAN, MDA MDA [id number] 15:17:32 16:26:19 JEFF sanchez 2021-01-06 2021-01-06 Outpatient FANTASMA ACKERMAN, MDA MDA [id number] 14:20:46 15:10:41 NEETU sanchez 2021-01-06 2021-01-06 Outpatient FANTASMA BELTRAN, MDA MDA [id number] 13:14:24 13:14:24 JEFF sanchez 2020-09-09 2020-09-09 [id number] 00:00:00 00:00:00 [facility] 2020-07-07 2020-07-07 [id number] 00:00:00 00:00:00 [facility] 2020-04-19 2020-04-19 Outpatient SUSANA SALGADO MDA MDA [id number] 14:38:36 16:34:48 Chaparro sanchez 2020-03-29 2020-03-29 Outpatient FANTASMA EVANS, MDA MDA [id number] 15:17:30 15:43:43 JOSE DE JESUS sanchez 2020-03-27 2020-03-27 Outpatient FANTASMA BELTRAN, MDA MDA [id number] 12:40:18 13:16:35 JEFF sanchez 2020-03-27 2020-03-27 Outpatient FANTASMA BELTRAN, MDA MDA [id number] 12:39:31 12:39:31 JEFF sanchez 2020-03-27 2020-03-27 Outpatient FANTASMA BELTRAN MDA MDA [id number] 09:29:29 09:29:29 JEFF sanchez 2020-01-23 2020-01-23 Outpatient SUSANA SALGADO MDA MDA [id number] MD 15:14:37 16:02:31 Chaparro sanchez 2020-01-08 2020-01-08 Outpatient FANTASMA MENDENHALL MDA MDA [id number] MD 09:51:41 10:21:50 ENIO sanchez 2019-12-26 2019-12-26 Outpatient SUSANA SALGADO MDA MDA [id number] MD 14:05:34 15:03:05 Chaparro sanchez 2019-12-05 2019-12-05 Outpatient SUSANA SALGADO MDA MDA [id number] MD 13:01:21 13:46:08 Chaparro sanchez 2019-11-14 2019-11-14 Outpatient SUSANA SALGADO MDA MDA [id number] MD 14:40:22 14:47:13 Chaparro sanchez 2019-10-23 2019-10-23 Outpatient SUSANA SALGADO MDA MDA [id number] 12:53:01 13:46:54 Chaparro sanchez 2019-10-08 2019-10-08 Outpatient FANTASMA MENDENHALL MDA MDA [id number] MD 10:43:29 12:15:01 ENIO sanchez 2019-10-08 2019-10-08 Outpatient FANTASMA MENDENHALL MDA MDA [id number] 00:00:00 00:00:00 ENIO sanchez 2019-10-03 2019-10-03 Outpatient FANTASMA MENDENHALL MDA MDA [id number] MD 13:58:11 14:44:06 ENIO sanchez 2019-09-24 2019-09-24 Outpatient FANTASMA BELTRAN MDA MDA [id number] 08:30:00 23:59:00 JEFF sanchez 2019-09-24 2019-09-24 Outpatient FANTASMA BELTRAN MDA MDA [id number] 11:56:00 13:25:38 JEFF sanchez 2019-09-18 2019-09-18 Outpatient FANTASMA MENDENHALL MDA MDA [id number] MD 15:00:02 15:54:41 ENIO sanchez 2019-08-22 2019-08-22 Outpatient FANTASMA MENDENHALL MDA MDA [id number] 13:54:25 14:42:43 ENIO sanchez 2019-08-22 2019-08-22 Outpatient SUSANA SALGADO MDA MDA [id number] 08:53:10 09:47:00 Chaparrosmiley sanchez 2019-08-13 2019-08-14 Outpatient SUSANA SALGADO MDA HN Surgery [id number] 09:18:00 14:55:00 Chaparrosmiley sanchez 2019-08-13 2019-08-13 Outpatient SUSANA SALGADO MDA MDA [id number] 11:06:13 11:14:08 Chaparrosmiley sanchez 2019-08-10 2019-08-10 Outpatient SUSANA SALGADO MDA MDA [id number] 10:37:34 10:37:34 Chaparrosmiley sanchez 2019-08-10 2019-08-10 Outpatient FANTASMA CABELLO MDA MDA [id number] 09:33:11 09:33:11 STACY sanchez 2018-03-24 2018-03-24 ALMA DELIA [facility] [id number] Univers 13:15:00 13:15:00 t; isac HORVATH [facility] [place] M.D. [place] Rocio HORVATH M.D. ans 2017-04-01 2017-04-01 ALMA DELIA Marcano Non-Invasiv [id number] Univers 14:00:00 14:00:00 t; DEMETRIUS NON-INVASIV e ity of NON-INVASI E [place] [facility]U Physici ans 2017-03-30 2017-03-30 Riccardo HIGGINS [facility] [id number] Univers 15:00:00 15:00:00 t; Disha BERNAL [place], [place] Disha BERNAL Physi ci ans 2017-03-10 2017-03-10 Riccardo HIGGINS [facility] [id number] Univers 14:45:00 14:45:00 t; Disha BERNAL [facility] Harlan BERNAL M.D. Physi ci ans 2017-01-05 2017-01-05 Riccardo CHAMORRO [facility] [id number] Univers 13:00:00 13:00:00 t; JUAN CARLOS CHAMORRO ity of JAMMIE, M.D. [place] M.D. Physici ans 2016-12-22 2016-12-22 Appointmen NICHOL ALMA DELIA [facility] [id number] Univers 11:15:00 11:15:00 t; MEG GANDARA it y of Disha WEAVER M.D. Physici ans 2016-10-04 2016-10-04 Appointmen MATTHEWALMA DELIA [id number] Univers 09:00:00 09:00:00 t; David HINKLE M.D. [place] CARLOS, Physici M.D. ans 2016-06-16 2016-06-16 Appointmen NICHOL ALMA DELIA FLANNERY [id number] Univers 10:45:00 10:45:00 t; MEG GANDARA it y Disha Jensen M.D. Physici ans 2016-06-16 2016-06-16 Appointmen NICHOL ALMA DELIA [facility] [id number] Univers 09:40:00 09:40:00 t; MEG GANDARA it y Disha Jensen M.D. Physici ans Results Test Description Test Time Test Comments Results Result Sour e Comments MR Foot wo 2018-03-24 MRI of the LEFT Universit y of contrast [id number] footINDICATION: [place] 16:35:00 Left foot Physicians pain.COMPARISON: No prior studies available for comparison.TECHNIQ UE: Multiplanar multisequence noncontrast MRI left foot.FINDINGS:Bone s: No evidence of acute fracture. No significant marrow edema.Soft tissues: Lisfranc ligament is intact. Plantar plates are intact. Nodefinitive Michael's neuroma.There is a small ankle and subtalar joint effusion. Small talonavicular jointeffusion.Ther e is mild edema around the talonavicular joint capsular ligaments,compatib le with mild ligament sprain.Muscles: No muscular edema, fluid collection or atrophy.Tendons: No focal tendon signal abnormality, or evidence for tenosynovitis.IMPR ESSION:1. No evidence of acute fracture.2. Mild talonavicular capsule sprain.3. Scattered small joint effusions.SL: RACHEL--Read by: Elder Khan MDDictated Date/time: 04/06/18 08:55Electronicall y Signed by: Elder Khan MD 04/06/1908:01FINAL REPORT [U] XRAY FOOT MIN Images acquired, [facility] [employer] of 3 VWS LEFT [id number] 1 not reported on Michael as 13:55:00 this accession [facility] number. [[facility]] URINALYSIS, COMPLETE 2017-03-12 09:48:00 Test Item Value Reference Range Interpretation Comme nts COLOR; Normal (test code = 5778-6) YELLOW YELLOW N APPEARANCE (test code = APPEARANCE) CLEAR CLEAR N SPECIFIC GRAVITY; Below Low Threshold (test code = 2965-2) 1.000 1.001-1.035 PH; Normal (test code = 2756-5) 7.5 5.0-8.0 N GLUCOSE; Normal (test code = 1547-9) NEGATIVE NEGATIVE N BILIRUBIN; Normal (test code = 83123-1) NEGATIVE NEGATIVE N KETONES; Normal (test code = 79718-2) NEGATIVE NEGATIVE N OCCULT BLOOD; Normal (test code = 93968-2) NEGATIVE NEGATIVE N PROTEIN; Normal (test code = 26672-2) NEGATIVE NEGATIVE N NITRITE; Normal (test code = 37950-5) NEGATIVE NEGATIVE N LEUKOCYTE ESTERASE (test code = LEUKOCYTE ESTERASE) TRACE NE GATIVE A WBC; Normal (test code = 6690-2) NONE SEEN < OR = 5 N RBC; Normal (test code = 789-8) 0-2 < OR = 2 N SQUAMOUS EPITHELIAL CELLS; Normal (test code = 26924-8) NONE SEEN < OR = 5 N BACTERIA; Normal (test code = 630-4) NONE SEEN NONE SEEN N HYALINE CAST; Normal (test code = 74294-7) NONE SEEN NONE SEEN N [facility][QL] DNA (DS) [id number] 09:48:00 Test Item Value Reference Range Interpretation Comments DNA (DS) ANTIBODY <1 N IU/mL Interpretation (test code = DNA (DS) < ANTIBODY) or = 4 Negat christine 5-9 Indeterminate > or = 10 Positive [facility][Q] SM AND SM/SAP BUSINESS OBJECTS DEVELOPER [id number] 09:48:00 Test Item Value Reference Range Interpretation Comments SM ANTIBODY (test code = SM <1.0 NEG <1.0 NEG N ANTIBODY) SM/SAP BUSINESS OBJECTS DEVELOPER ANTIBODY (test code = SM/SAP BUSINESS OBJECTS DEVELOPER <1.0 NEG <1.0 NEG N ANTIBODY) [facility]] SJOGRENS ANTIBODIES (SS-A,SS-B)2017-03-12 09:48:00 Test Item Value Reference Range Interpretation Comments SJOGREN''S ANTIBODY (SS-A) (test <1.0 NEG <1.0 NEG N code = SJOGREN''S ANTIBODY (SS-A)) SJOGREN''S ANTIBODY (SS-B) (test <1.0 NEG <1.0 NEG N code = SJOGREN''S ANTIBODY (SS-B)) [facility]] COMPLEMENT COMPONENT [id number] 09:48:00 Test Item Value Reference Range Interpretation Comments COMPLEMENT COMPONENT C3C (test code 149 mg/dl 90-180 N = COMPLEMENT COMPONENT C3C) [facility]] COMPLEMENT COMPONENT [id number] 09:48:00 Test Item Value Reference Range Interpretation Comments COMPLEMENT COMPONENT C4C (test code 34 mg/dl 16-47 N = COMPLEMENT COMPONENT C4C) [facility][] PROTEIN, TOTAL W/CREAT, RANDOM URINE 2017-03-12 09:48:00 Test Item Value Reference Range Interpretation Comments CREATININE, 21 mg/dl 20-320 N RANDOM URINE (test code = CREATININE, RANDOM URINE) PROTEIN/CREATININ NOTE 21-161 THE PROTEI N VALUE IS LESS E RATIO (test THAN 4 MG/DLTH EREFORE WE ARE code = UNABLE TO CALCU LATEEXCRETION PROTEIN/CREATININ AND/OR CRE ATININE RATIO. E RATIO) PROTEIN, TOTAL, <4 5-24 RANDOM UR (test code = PROTEIN, TOTAL, RANDOM UR) [facility]
[2021-03-13] MEDS ORDERED: ONDANSETRON 4 MG (ODT) TAB ONE (01:46)
--- NOTE | 2021-03-13 01:52 | ER ---
Nurse's Notes [facility] [place] [place] [facility] Name: Estefani Harris Age: 40 yrs Sex: Female : 1980 Arrival Date: 03/13/2021 Time: 00:56 Bed 24 Private MD: Diagnosis: Foreign body in esophagus-resolved Presentation: 03/13 01:17 Chief complaint: Patient states: "I made boneless pork chops and then I started as6 choking" at time of triage VSS and pt is able to speak is full sentences with no difficulties. Coronavirus screen: At this time, the client does not indicate any symptoms associated with coronavirus-19. Ebola Screen: No symptoms or risks identified at this time. Initial Sepsis Screen: Does the patient meet any 2 criteria? No. Patient's initial sepsis screen is negative. Does the patient have a suspected source of infection? No. Patient's initial sepsis screen is negative. Risk Assessment: Do you want to hurt yourself or someone else? Patient reports no desire to harm self or others. Onset of symptoms was March 12, 2021 at 18:40. 01:17 Method Of Arrival: Ambulatory as6 01:17 Acuity: HERMANN 4 as6 Historical: - Allergies: 01:21 Rhinocort Aqua; as6 - Home Meds: 01:21 None [Active]; as6 - PMHx: 01:21 Hypothyroidism; POTS; Asthma; thyroid cancer; as6 - PSHx: 01:21 Thyroidectomy; as6 - Immunization history:: Client reports receiving the 2nd dose of the Covid vaccine, [employer] . - Social history:: Smoking status: Patient denies any tobacco usage or history of. Screenin:30 Abuse screen: Denies threats or abuse. Nutritional screening: Difficulty st1 chewing/swallowing? Yes. Tuberculosis screening: No symptoms or risk factors identified. Fall Risk None identified. No fall in past 12 months (0 pts). No secondary diagnosis (0 pts). No IV (0 pts). Ambulatory Aid- None/Bed Rest/Nurse Assist (0 pts). Gait- Normal/Bed Rest/Wheelchair (0 pts) Mental Status- Oriented to own ability (0 pts). Total Rodriguez Fall Scale indicates No Risk (0-24 pts). Assessment: :27 General: Appears in no apparent distress. comfortable, slender, well groomed, well st1 nourished, Behavior is calm, cooperative, Reports Denies. Pain: Complains of pain in abdomen Pain does not radiate. Pain at worst was 3 out of 10 on a pain scale. Quality of pain is described as pressure, Pain began suddenly. Neuro: No deficits noted. Respiratory: No deficits noted. Vital Signs: 01:17 BP 121 / 82; Pulse 86; Resp 16 S; Temp 97.5(TE); Pulse Ox 97% on R/A; Weight 59.87 kg as6 (R); Height 5 ft. 6 in. (167.64 cm) (R); Pain 4/10; 01:33 BP 97 / 60; Pulse 67; Resp 14; Pulse Ox 99% on R/A; Pain 0/10; st1 02:05 BP 102 / 60; Pulse 65; Resp 16; Temp 98.4; Pulse Ox 100% on R/A; Pain 0/10; st1 01:17 Body Mass Index 21.31 (59.87 kg, 167.64 cm) as6 01:33 she only has pain when she tried to drink fluid st1 Juan Manuel Coma Score: 01:33 Eye Response: spontaneous(4). Verbal Response: oriented(5). Motor Response: obeys st1 commands(6). Total: 15. ED Course: 00:56 Patient arrived in ED. wm 01:21 Triage completed. as6 01:23 Arm band placed on. as6 01:27 Annamaria Estevez, JUVE is Primary Nurse. st1 01:27 Juwan Hameed PA is PHCP. cp 01:27 Thony Rivera MD is Attending Physician. cp 01:31 the patient states she has pain in the upper stomach when she tries to drink water 3/10 st1 that feels like pressure. she states she thinks a piece of pork chop is lodged and vomits up the water when she drinks. she states she attempted to drink coke to help dislodge the piece of meat but was unsuccessful. 01:33 Patient has correct armband on for positive identification. Placed in gown. Bed in low st1 position. Call light in reach. Side rails up X 1. 01:49 Cheng Khan MD is Referral Physician. cp 01:53 YOU Toth had the patient jump up and down causing the piece of lodged food to clear. st1 the patient was given fluid to drink. she states she feels that the food was dislodged and no longer wants to vomit. 01:53 No provider procedures requiring assistance completed. st1 02:06 Patient did not have IV access during this emergency room visit. st1 Administered Medications: 01:35 Drug: Ondansetron 4 mg Route: PO; st1 Outcome: 01:52 Discharge ordered by . cp 02:06 Discharged to home st1 02:06 Condition: improved 02:06 Discharge instructions given to patient, Instructed on discharge instructions, follow up and referral plans. medication usage, Demonstrated understanding of Prescriptions given X 1. 02:07 Patient left the ED. st1 Signatures: Juwan Hameed PA PA cp Marsh, Wendy wm Slawson, Ashby, RN RN as6 Annamaria Estevez RN RN st1
--- NOTE | 2021-03-13 01:52 | EDPHYS ---
Physician Documentation [facility] [place] Name: Estefani Harris Age: 40 yrs Sex: Female : 1980 Arrival Date: 03/13/2021 Time: 00:56 Bed 24 Private MD: ED Physician Thony Rivera HPI: 03/13 01:40 This 40 yrs old Female presents to ER via Ambulatory with complaints of Choked/Choking cp - See personal form pt typed up. 01:40 The patient presents to the emergency department with nausea, esophageal foreign body. cp 01:40 Onset: The symptoms/episode began/occurred last night. Patient reports she was eating cp and feels like a piece of pork is stuck in lower esophagus. Has been unable to tolerate oral fluids. Historical: - Allergies: 01:21 Rhinocort Aqua; as6 - Home Meds: 01:21 None [Active]; as6 - PMHx: 01:21 Hypothyroidism; POTS; Asthma; thyroid cancer; as6 - PSHx: 01:21 Thyroidectomy; as6 - Immunization history:: Client reports receiving the 2nd dose of the Covid vaccine, [employer] . - Social history:: Smoking status: Patient denies any tobacco usage or history of. ROS: 01:42 Constitutional: Negative for body aches, chills, fever, poor PO intake. cp 01:42 Eyes: Negative for injury, pain, redness, and discharge. cp 01:42 Cardiovascular: Negative for chest pain. 01:42 Respiratory: Negative for cough, shortness of breath, wheezing. 01:42 Abdomen/GI: Positive for nausea, vomiting, swallowed foreign body sensation, Negative for abdominal pain, diarrhea, constipation. 01:42 All other systems are negative. Exam: 01:45 Head/Face: Normocephalic, atraumatic. cp 01:45 Eyes: Periorbital structures: appear normal, Conjunctiva: normal, no exudate, no cp injection, Lids and lashes: appear normal, bilaterally. 01:45 ENT: External ear(s): are unremarkable, Nose: is normal, Mouth: Lips: moist, Oral mucosa: moist, Posterior pharynx: Airway: no evidence of obstruction, patent. 01:45 Neck: ROM/movement: is normal, is supple, without pain, no range of motions limitations. 01:45 Chest/axilla: Inspection: normal. 01:45 Cardiovascular: Rate: normal, Rhythm: regular. 01:45 Respiratory: the patient does not display signs of respiratory distress, Respirations: normal, no use of accessory muscles, no retractions, labored breathing, is not present, Breath sounds: are clear throughout, no decreased breath sounds, no stridor, no wheezing. 01:45 Abdomen/GI: Exam negative for discomfort, distension, guarding, Inspection: abdomen appears normal. Vital Signs: 01:17 BP 121 / 82; Pulse 86; Resp 16 S; Temp 97.5(TE); Pulse Ox 97% on R/A; Weight 59.87 kg as6 (R); Height 5 ft. 6 in. (167.64 cm) (R); Pain 4/10; 01:33 BP 97 / 60; Pulse 67; Resp 14; Pulse Ox 99% on R/A; Pain 0/10; st1 02:05 BP 102 / 60; Pulse 65; Resp 16; Temp 98.4; Pulse Ox 100% on R/A; Pain 0/10; st1 01:17 Body Mass Index 21.31 (59.87 kg, 167.64 cm) as6 01:33 she only has pain when she tried to drink fluid st1 Juan Manuel Coma Score: 01:33 Eye Response: spontaneous(4). Verbal Response: oriented(5). Motor Response: obeys st1 commands(6). Total: 15. MDM: 01:35 Patient medically screened. cp 01:50 Differential diagnosis: gastritis, pancreatitis, viral gastroenteritis, cp gastroenteritis, esophageal foreign body. 01:52 Data reviewed: vital signs, nurses notes. cp 01:52 Counseling: I had a detailed discussion with the patient and/or guardian regarding: the cp historical points, exam findings, and any diagnostic results supporting the discharge/admit diagnosis. 01:52 Response to treatment: the patient's symptoms have resolved after treatment, patient cp tolerating po fluids after taking po zofran and having patient jump up and down, and as a result, I will discharge patient. 03/13 01:38 Order name: Cardiac monitoring; Complete Time: 01:38 cp 03/13 01:38 Order name: O2 Per Protocol; Complete Time: 01:38 cp 03/13 01:38 Order name: O2 Sat Monitoring; Complete Time: 01:38 cp Administered Medications: 01:35 Drug: Ondansetron 4 mg Route: PO; st1 Disposition: 05:10 Co-signature as Attending Physician, Thony Rivera MD. [email or web address] Disposition Summary: 03/13/21 01:52 Discharge Ordered Location: Home cp Problem: new cp Symptoms: have improved cp Condition: Stable cp Diagnosis - Foreign body in esophagus - resolved(03/13/21 01:59) cp Followup: cp - With: Cheng Khan MD - When: 1 - 2 days - Reason: Recheck today's complaints Discharge Instructions: - Discharge Summary Sheet cp - Swallowed Foreign Body, Adult cp Forms: - Medication Reconciliation Form cp - Thank You Letter cp - Antibiotic Education cp - Prescription Opioid Use cp Prescriptions: - ZOFRAN ODT - take 4 milligram by ORAL route every 8-10 hours As needed as needed for nausea; cp 20 milligram; Refills: 0, Product Selection Permitted Signatures: Dispatcher [employer] EDMS Juwan Hameed PA PA cp Thony Rivera MD MD 7 Sreekanth Christie RN RN as6 Annamaria Estevez RN RN st1 Corrections: (The following items were deleted from the chart) 01:47 01:38 EKG - Nurse/Tech ordered. cp cp 01:48 01:38 IV Saline Lock ordered. cp cp 01:48 01:38 Labs collected and sent ordered. cp cp 01:48 01:38 Basic Metabolic Panel ordered. EDMS EDMS 01:48 01:40 Urine Dipstick-Ancillary ordered. cp cp 01:48 01:40 Urine Test ordered. cp cp 01:50 01:39 Chest Single View+RAD.RAD.BRZ ordered. EDMS EDMS 01:51 01:39 CBC+H.LAB.BRZ ordered. EDMS EDMS 01:51 01:39 HEPATIC FUNCTION+C.LAB.BRZ ordered. EDMS EDMS 01:51 01:39 MAGNESIUM+C.LAB.BRZ ordered. EDMS EDMS 01:51 01:39 PROTIME (+INR)+COAG.LAB.BRZ ordered. EDMS EDMS 01:51 01:39 Troponin High Sensitivity+C.LAB.BRZ ordered. EDMS EDMS 01:59 01:52 Foreign body in esophagus cp cp
[2021-03-13 02:26] VITALS: BP 102/60; TEMP 98.4; O2SAT 100
== END 2021-03-13 02:07 | disposition home or self-care (01) ==
LOC: ER 00:50
DX: T18.128A Food in esophagus causing other injury, initial encounter (principal); R11.2 Nausea with vomiting, unspecified; Z88.8 Allergy status to other drugs, medicaments and biological substances
CPT/HCPCS: 99283